=== PATIENT | female | born 2000 | race African-American/Black ===

== ENCOUNTER 2019-10-18 09:32 | Emergency (ER) | payer MEDICAID ==
[~2019-10-18] VITALS: Ht 175.3 cm; Wt 136.0 kg
[2019-10-18] MEDS ORDERED: ASPIRIN 81MG TABLET PO ONE (10:15)
[2019-10-18 10:22] LABS: BASOPHILS % 1.3 % (0.0-2.0); EOSINOPHILS % 0.9 % (0.0-5.0); HEMATOCRIT. 38.9 % (36.0-48.0); HEMOGLOBIN. 13.7 g/dL (12.0-16.0); LYMPHOCYTES % 16.1 % (20.0-50.0); MEAN CORPUSCULAR HEMOGLOBIN 31.7 pg (28.0-32.0); MEAN CORPUSCULAR VOLUME 90.2 fL (81.0-99.0); MEAN PLATELET VOLUME 8.5 fl (7.4-10.4); MONOCYTES % 6.5 % (2.0-8.0); NEUTROPHILS % 75.2 % (40.0-76.0); PLATELET 226 x1000/uL (130-400); RED BLOOD CELL COUNT 4.32 mill/uL (4.2-5.4); RED CELL DISTRIBUTION WIDTH 12.8 % (11.6-14.6)
[2019-10-18 10:29] LABS: CHLORIDE 104 mEq/L (98-107)
[2019-10-18 10:35] LABS: D-DIMER 0.61 mg/L FEU (<0.50); PARTIAL THROMBOPLASTIN TIME 33.1 sec (23.4-31.0); PROTHROMBIN TIME 10.9 sec (9.6-11.0)
[2019-10-18] MEDS ORDERED: IOHEXOL-350 100 ML BOTTLE ONE (12:30)
[2019-10-18 12:36] VITALS: BP 160/100
== END 2019-10-18 12:52 | disposition home or self-care (01) ==
LOC: ER 09:32
DX: R07.89 Other chest pain (principal); R07.81 Pleurodynia
CPT/HCPCS: 36415; 71045; 71275; 80053; 81025; 84484; 85025; 85379; 85610; 85730; 93005; 99285; Q9967; Z7610

== ENCOUNTER 2021-02-22 14:05 | Emergency (ER) | payer MEDICAID ==
[~2021-02-22] VITALS: Ht 175.3 cm; Wt 146.0 kg
[2021-02-22 14:12] VITALS: BP 159/81
== END 2021-02-22 17:30 | disposition left against medical advice (07) ==
LOC: ER 14:05
DX: Z53.21 Procedure and treatment not carried out due to patient leaving prior to being seen by health care provider (principal)
CPT/HCPCS: 93005

== ENCOUNTER 2021-06-19 08:52 | Emergency (ER) | payer MEDICAID ==
[~2021-06-19] VITALS: Ht 177.8 cm; Wt 150.0 kg
[2021-06-19] MEDS ORDERED: KETOROLAC 60MG/2ML VIAL IM ONE (10:15)
[2021-06-19] MEDS ORDERED: IBUPROFEN 400MG TABLET PO ONE (12:00)
[2021-06-19 12:20] VITALS: BP 132/71
== END 2021-06-19 12:20 | disposition home or self-care (01) ==
LOC: ER 08:52
DX: M25.562 Pain in left knee (principal)
CPT/HCPCS: 73564; 81025; 99283; Z7610

== ENCOUNTER 2023-08-06 03:31 | Emergency (ER) | payer MEDICAID ==
[~2023-08-06] VITALS: Ht 175.3 cm; Wt 150.0 kg
[2023-08-06 04:10] VITALS: O2SAT 99
[2023-08-06] MEDS ORDERED: IBUP-2030 MT (05:50)
[2023-08-06] MEDS ORDERED: CYCL10TA21 MT (05:50)
[2023-08-06] MEDS ORDERED: IBUPROFEN 800MG TABLET PO ONE (06:00)
[2023-08-06] MEDS: IBUPROFEN 400MG TABLET PO NR (06:11)
[2023-08-06] MEDS: CYCLOBENZAPRINE 10MG TABLET PO ONE (06:11)
[2023-08-06 06:19] VITALS: BP 136/88; PULSE 85; RESP 16; TEMP 97.5
== END 2023-08-06 06:25 | disposition home or self-care (01) ==
LOC: ER 03:31
DX: M54.9 Dorsalgia, unspecified (principal); R07.89 Other chest pain
CPT/HCPCS: 93005; 99283; Z7610

== ENCOUNTER 2024-02-13 23:12 | Emergency (ER) | payer MEDICAID ==
[~2024-02-13 23:12] MED LIST: CYCL10TA21 MT; IBUP-2030 MT
[2024-02-13 23:19] VITALS: PULSE 101; O2SAT 99
== END 2024-02-14 02:32 | disposition left against medical advice (07) ==
LOC: ER 23:29
DX: R10.9 Unspecified abdominal pain (principal); Z53.21 Procedure and treatment not carried out due to patient leaving prior to being seen by health care provider

== ENCOUNTER 2024-03-03 22:28 | Emergency (ER) | payer MEDICAID ==
[~2024-03-03] VITALS: Ht 180.3 cm; Wt 159.4 kg
[2024-03-03 22:36] VITALS: O2SAT 96
[2024-03-03 22:37] VITALS: BP 143/77; PULSE 82; RESP 18; TEMP 98.2; O2SAT 98
[2024-03-03 23:26] LABS: BASOPHILS % 0.9 % (0.0-2.0); EOSINOPHILS % 1.7 % (0.0-5.0); HEMATOCRIT. 39.4 % (36.0-48.0); HEMOGLOBIN. 13.2 g/dL (12.0-16.0); LYMPHOCYTES % 26.1 % (20.0-50.0); MEAN CORPUSCULAR HEMOGLOBIN 30.5 pg (28.0-32.0); MEAN CORPUSCULAR HGB CONC 33.6 g/dL (31.0-37.0); MEAN CORPUSCULAR VOLUME 90.8 fL (81.0-99.0); MEAN PLATELET VOLUME 8.5 fl (7.4-10.4); MONOCYTES % 5.7 % (2.0-8.0); NEUTROPHILS % 65.6 % (40.0-76.0); PLATELET 263 x1000/uL (130-400); RED BLOOD CELL COUNT 4.34 mill/uL (4.2-5.4); WHITE BLOOD COUNT 9.1 x1000/uL (4.5-11.0)
[2024-03-03 23:35] LABS: CARBON DIOXIDE 30 mEq/L (21-32); CHLORIDE 106 mEq/L (98-107); POTASSIUM 3.7 mEq/L (3.5-5.1); SODIUM 138 mEq/L (136-145)
[2024-03-03 23:36] LABS: CALCIUM 9.7 mg/dL (8.7-10.4)
[2024-03-03 23:40] LABS: CREATININE 0.9 mg/dL (0.6-1.0)
[2024-03-03 23:41] LABS: GLUCOSE 93 mg/dL (70-105); UREA NITROGEN BLOOD 9 mg/dL (9-23)
[2024-03-03 23:42] LABS: ALANINE AMINOTRANSFERASE 26 IU/L (10-49)
[2024-03-03 23:43] LABS: ALBUMIN 4.5 g/dL (3.2-4.8); ASPARTATE AMINOTRANSFERASE 16 IU/L (<34); BILIRUBIN DIRECT 0.1 mg/dL (<=3.0); BILIRUBIN TOTAL 0.5 mg/dL (0.1-1.0); PROTEIN TOTAL 7.5 g/dL (6.0-8.3)
[2024-03-03] MEDS: ACETAMINOPHEN 325MG TABLET PO ONE (23:51)
[2024-03-03 23:56] LABS: TROPONIN I HIGH SENSITIVITY < 4 ng/L (3.0-34)
[2024-03-04 00:07] LABS: HCG SCREEN NEGATIVE
[2024-03-04] MEDS ORDERED: ACET-2708 MT (00:37)
== END 2024-03-04 01:32 | disposition home or self-care (01) ==
LOC: ER 22:28
DX: R07.89 Other chest pain (principal); Z79.899 Other long term (current) drug therapy
CPT/HCPCS: 80076; 80048; 84703; 83690; 85025; 85379; 84484; 36415; 71045; 93005; 99285; Z7610